=== PATIENT | male | born 1960 | race Two or more races ===

== ENCOUNTER 2018-08-10 22:05 | Emergency (ER) | payer SELFPAY ==
[~2018-08-10] VITALS: Ht 177.8 cm; Wt 79.4 kg
--- NOTE | 2018-08-11 00:21 | NUR ---
PT BROUGHT IN WITH UNCLEAR GENERALIZED COMPLAINT, PLACED IN ER BED 6, VS STABLE, SEEN AND EVAL BY DR MCCLENDON.
[2018-08-11 00:52] VITALS: BP 117/84
== END 2018-08-11 00:55 | disposition home or self-care (01) ==
LOC: ER 22:10
DX: Z13.89 Encounter for screening for other disorder (principal); Z59.0 Homelessness